=== PATIENT | male | born 1960 | race Caucasian/White ===

== ENCOUNTER 2020-11-08 09:50 | Outpatient (REF) | payer OTHER, SELFPAY ==
[2020-11-08 14:30] LABS: Anion Gap 7.4 mmol/L (3-11); BUN 21 mg/dL (7-18); CO2 26.6 mmol/L (21.0-32.0); CREATININE 1.21 mg/dL (0.70-1.30); Calcium 8.6 mg/dL (8.5-10.1); Calculated LDL 122 mg/dL (<100); Chloride 107 mmol/L (98-107); Cholesterol 217 mg/dL (<200); Glucose 98 mg/dL (74-106); HDL Cholesterol 44 mg/dL (40-60); Potassium 4.3 mmol/L (3.5-5.1); Sodium 141 mmol/L (136-145); Triglyceride 257 mg/dL (<150)
== END 2020-11-08 10:10 ==
LOC: NCHCN 09:50
PROVIDERS: PCP Physician Assistant; Visit Provider Physician Assistant
DX: R03.0 Elevated blood-pressure reading, without diagnosis of hypertension (principal)
CPT/HCPCS: 80048; 80061

== ENCOUNTER 2020-12-03 05:26 | Outpatient (CLI) | payer OTHER, SELFPAY ==
--- NOTE | 2020-12-20 12:35 | W.ZIOMONITOR ---
Date of service: 12/20/20 Time of Service: 12:35 14 Day Telephone Advice Nurse Referring Provider:: Monica Indications:: palps Note: This is a 14-day monitor ordered for occasional palpitations. ?The patient was in normal sinus rhythm for the majority of the recording with an average heart rate of 75 bpm. ?There was one episode of supraventricular tachycardia which lasted 6 beats. The patient was asymptomatic during this episode. ?There were rare PACs and rare PVCs. There were no episodes of ventricular tachycardia. ?There are no episodes of atrial fibrillation, no pauses greater than 3 seconds and no evidence of high degree heart block. ?Patient triggered events were associated with sinus rhythm and sinus tachycardia.
== END 2020-12-03 05:46 ==
PROVIDERS: PCP Physician Assistant; Visit Provider Physician Assistant
DX: R00.2 Palpitations (principal)
CPT/HCPCS: 93246

== ENCOUNTER 2021-01-11 09:16 | Outpatient (CLI) | payer OTHER, SELFPAY ==
--- NOTE | 2021-01-11 09:15 | RT.EKG_ITS ---
APPROVED REPORT Exam: Resting ECG Patient Location: O HR:74 bpm ECG Measurements Heart Rate 74 AXIS ID 127 P 13 QRSd 93 QRS 12 QT 380 T 17 QTc 422 Conclusion Sinus rhythm...normal P axis, V-rate 50- 99
== END 2021-01-11 09:17 | disposition home or self-care (01) ==
LOC: DI.CARD 09:17
PROVIDERS: PCP Physician Assistant; Visit Provider Internal Medicine Cardiovascular Disease
DX: R00.2 Palpitations (principal); R09.89 Other specified symptoms and signs involving the circulatory and respiratory systems; Z82.49 Family history of ischemic heart disease and other diseases of the circulatory system
CPT/HCPCS: 93010

== ENCOUNTER 2021-01-11 18:44 | Outpatient (REF) | payer OTHER, SELFPAY ==
[2021-01-11 11:15] LABS: Calculated LDL 127 mg/dL (<100); Cholesterol 215 mg/dL (<200); HDL Cholesterol 49 mg/dL (40-60); Triglyceride 197 mg/dL (<150)
== END 2021-01-11 18:45 | disposition home or self-care (01) ==
LOC: LBN 18:44
PROVIDERS: PCP Physician Assistant; Visit Provider Internal Medicine Cardiovascular Disease
DX: R00.2 Palpitations (principal); E78.89 Other lipoprotein metabolism disorders
CPT/HCPCS: 80061

== ENCOUNTER 2021-02-06 01:48 | Outpatient (CLI) | payer OTHER, SELFPAY ==
--- NOTE | 2021-02-06 13:56 | DI.US_ITS ---
APPROVED REPORT EXAM: Comprehensive 2D, Doppler, and color-flow Echocardiogram Patient Location: Out-Patient Rigging Up Worker: Valerie Mario RDCS (AE) Indications: Palpiations Other Information Study Quality: Good Conclusion Left Ventricle : The left ventricle is normal size. The left ventricular systolic function is normal. The left ventricular ejection fraction is within the normal range. There is normal left ventricular wall thickness. There is normal LV segmental wall motion. The left ventricular diastolic function is normal. LVEF is 61%. Right Ventricle : The right ventricle is normal size. The right ventricular systolic function is norm al. The RVSP is 23.9mmHg. Atria : The left atrium size is normal. The right atrium size is normal. Valves: There are no hemodynamically significant valvular lesions. Great Vessels : The aortic root is normal in size. The ascending aorta is normal in size. Aortic arch is normal in caliber. IVC is normal in size and collapses >50% with inspiration. Please see remainder of study for further details. Wall motion Left Ventricle The left ventricle is normal size. The left ventricular systolic function is normal. The left ventric ular ejection fraction is within the normal range. There is normal left ventricular wall thickness. T here is normal LV segmental wall motion. The left ventricular diastolic function is normal. There is no ventricular septal defect visualized. LVEF is 61%. Right Ventricle The right ventricle is normal size. The right ventricular systolic function is normal. The RVSP is 23 .9mmHg. Atria The left atrium size is normal. The right atrium size is normal. The interatrial septum is intact wit h no evidence for an atrial septal defect. Aortic Valve The aortic valve is normal in structure. Aortic valve is trileaflet. There is no aortic valvular sten osis. No aortic regurgitation is present. Mitral Valve The mitral valve is normal in structure. No evidence of mitral valve stenosis. Trace mitral regurgita tion. Tricuspid Valve The tricuspid valve is normal in structure. There is no tricuspid valve stenosis. Trace tricuspid reg urgitation. Pulmonic Valve The pulmonary valve is normal in structure. There is no pulmonic valvular stenosis. Trace pulmonic re gurgitation. Great Vessels The aortic root is normal in size. The ascending aorta is normal in size. Aortic arch is normal in ca liber. IVC is normal in size and collapses >50% with inspiration. Pericardium There is no pericardial effusion. 2D Dimensions IVSD d PLAX 0.88 cm M: 0.6-1.2 LV Vol A2C d MOD 84.8 mL LVPW d PLAX 0.90 cm M: 0.6 - 1.2 LV Vol A4C d MOD 105.6 mL LVID d PLAX 4.47 cm M: 4.2 - 5.8 LA vol/ BSA A2C s A-L 15.3 mL/m2 LVDs 3.00 cm M: 2.5 - 4.0 LA vol/ BSA A4C s A-L 12.8 mL/m2 Ao Root d 2.79 cm M: 3.1 - 3.7 LA Vol/ BSA Biplane s A-L 14.6 mL/m2 RA Area A4C 10.11 cm2 LA Area A4C s MOD 11.99 cm2 RA Vol/ BSA A4C s A-L 10.2 mL/m2 LA Area A2C s MOD 12.54 cm2 Ao Asc Diam d 3.33 cm M: 2.6 - 3.4 LV EF A4C MOD 61.3 % LV EF Teichholz 61.4 % LV EF A2C MOD 59.2 % LVEF (Johnson's) 61.38 % M: 52 - 72 LV EF Biplane MOD 61.4 % LV Volume 73.19 mL M: 62 - 150 SV 60.12 mL LV Volume Index 36.23 mL/m2 M: 34 - 74 SV Index 29.73 mL/m2 LV Vol Biplane MOD 97.9 mL FS 32.75 % M-Mode TAPSE 2.25 cm (M/F) >1.7 LV Diastology MV E' medial 0.104 (>0.07 m/s) E/A Ratio 1.0 LV E/e MED 7.20 (<14) MV E Vmax 0.75 (0.4-1.3 m/s) MV E' lateral 0.094 (>0.1 m/s) MV A Vmax 0.75 (0.4-1.3 m/s) LV E/e LAT 7.95 (<14) MV E/A Ratio 0.99 MV E/E' medial 7.23 MV E/E' lateral 7.98 Aortic Valve LVOT Area 2.90 cm2 AoV Area Vmax 1.95 cm2 LVOT Vmax 1.01 m/s AoV Area/ BSA (Vmax) 0.96 cm2/m2 LVOT Mean Renato. 0.61 m/s KALA Mean Renato. 1.77 cm2 LVOT Peak Grad 4.1 mmHg KALA Mean Renato. Index 0.87 cm2/m2 LVOT Mean Grad 1.8 mmHg LVOT VTI 0.193 m LVOT Diam s 1.90 cm AoV Vmax 1.51 m/s Velocity Ratio 0.66 AoV Mean Renato. 1.01 m/s AoV Peak Grad 9.1 mmHg LVOT SV 55.92 mL AoV Mean Grad 4.7 mmHg AoV VTI 0.287 m AoV Area VTI 1.95 cm2 AoV Area/ BSA (VTI) 0.96 cm/m2 Mitral Valve MV DT 167 (160-240 msec) MV PHT 48 msec MV Area PHT 4.54 cm2 Pulmonary Valve PV Vmax 1.17 (0.5-1.5 m/s) RVOT Peak Gr. 1.48 mmHg PV Peak Grad 5.5 mmHg RVOT Mean Gr. 0.80 mmHg PV Mean Grad 2.6 mmHg RVOT VTI 0.127 m PV VTI 0.221 m RVOT Vmax 0.61 m/s Tricuspid Valve TR Peak Grad 20.9 mmHg TR Vmax 2.29 m/s RA Pressure 3.00 mmHg RVSP (TR) 23.9 mmHg
== END 2021-02-06 02:08 ==
PROVIDERS: PCP Physician Assistant; Visit Provider Internal Medicine Cardiovascular Disease
DX: R00.2 Palpitations (principal)
CPT/HCPCS: 93306

== ENCOUNTER 2021-03-06 01:32 | Outpatient (CLI) | payer OTHER, SELFPAY ==
--- NOTE | 2021-03-06 08:59 | DI.RAD_ITS ---
EXAM: RF BARIUM SWALLOW CLINICAL HISTORY: GERD,K21.9 TECHNIQUE: 2D and realtime digital imaging was performed. This study was performed both standing and recumbent. Both single and double-contrast technique. CONTRAST MATERIAL: Barium sulfate COMPARISON: No exams were available for comparison FINDINGS: Swallowing mechanism appeared grossly intact. Appear to be mild penetration but no aspiration. No o bvious hypertense upper esophageal sphincter. Small anterior osteophytes in lower cervical spine sli ghtly indent the posterior aspect of the barium column. There is no evidence of Zenker's diverticulu m. No obvious fixed lesions evident in the esophagus. No hiatal hernia. No Schatzki ring. Incidentally noted on this study is a prominent the duodenal diverticulum typical location on the med ial wall near the insertion of the common bile duct. There are no ulcer craters evident. No strictu res in the duodenum. IMPRESSION: No obvious fixed lesions seen in the esophagus. No hiatal hernia evident. Mild reflux demonstrated. Given this patient's symptoms are recommend follow-up modified barium swallow study. RADIATION DOSE DELIVERED: michael Sullivan=37.0 mGy
[2021-03-06] MEDS: Barium Sulfate 60% W/V 355 ML BTL PO (09:55)
== END 2021-03-06 01:52 ==
PROVIDERS: PCP Physician Assistant; Visit Provider Physician Assistant
DX: K21.9 Gastro-esophageal reflux disease without esophagitis (principal)
CPT/HCPCS: 74221; J3490

== ENCOUNTER 2021-04-09 07:42 | Outpatient (REF) | payer OTHER, SELFPAY ==
[2021-04-09 16:07] LABS: ALT 51 U/L (16-63); AST 22 U/L (15-37); Albumin 3.8 g/dL (3.4-5.0); Alkaline Phosphatase 143 U/L (46-116); Anion Gap 13.2 mmol/L (3-11); BUN 16 mg/dL (7-18); Bilirubin, Total 0.7 mg/dL (0.2-1.0); CO2 22.8 mmol/L (21.0-32.0); CREATININE 1.1 mg/dL (0.70-1.30); Calcium 8.9 mg/dL (8.5-10.1); Calculated LDL 60 mg/dL (<100); Chloride 109 mmol/L (98-107); Cholesterol 128 mg/dL (<200); Glucose 100 mg/dL (74-106); HDL Cholesterol 41 mg/dL (40-60); Sodium 145 mmol/L (136-145); Total Protein 6.5 g/dL (6.4-8.2); Triglyceride 136 mg/dL (<150)
[2021-04-09 22:26] LABS: PSA, Screening 1.1 ng/mL (0.0-4.5)
== END 2021-04-09 07:43 | disposition home or self-care (01) ==
LOC: NCHCN 07:42
PROVIDERS: PCP Physician Assistant; Visit Provider Physician Assistant
DX: Z12.5 Encounter for screening for malignant neoplasm of prostate (principal); E78.5 Hyperlipidemia, unspecified
CPT/HCPCS: 80053; 80061; 84153

== ENCOUNTER 2021-12-31 10:34 | Outpatient (REF) | payer OTHER, SELFPAY ==
[2021-12-31 15:25] LABS: HCT 41.2 % (40.0-50.0); HGB 13.7 g/dL (13.5-17.5); MCH 30.2 pg (27.0-33.0); MCHC 33.3 % (32.0-36.0); MCV 90.7 fL (80-95); MPV 9.8 fL (8.0-11.0); Platelet Count 280 10^3/uL (130-400); RBC 4.54 10^6/uL (4.36-5.78); RDW-SD 39.7 fL; WBC 6.95 10^3/uL (4.4-10.8)
[2021-12-31 15:49] LABS: Anion Gap 9.4 mmol/L (3-11); BUN 16 mg/dL (7-18); CO2 25.6 mmol/L (21.0-32.0); CREATININE 1.1 mg/dL (0.70-1.30); Calcium 8.8 mg/dL (8.5-10.1); Chloride 109 mmol/L (98-107); Glucose 111 mg/dL (74-106); Potassium 3.8 mmol/L (3.5-5.1); Sodium 144 mmol/L (136-145); TSH 1.04 uIU/mL (0.36-3.74)
[2021-12-31 22:30] LABS: T3, Total 136 ng/dL (97-169)
== END 2021-12-31 10:35 | disposition home or self-care (01) ==
LOC: NCHCN 10:34
PROVIDERS: PCP Physician Assistant; Visit Provider Physician Assistant
DX: R42 Dizziness and giddiness (principal); R79.89 Other specified abnormal findings of blood chemistry
CPT/HCPCS: 80048; 85027; 84443; 84480; 85025

== ENCOUNTER 2022-04-22 15:36 | Outpatient (REF) | payer OTHER, SELFPAY | END 2022-04-22 15:37 | disposition home or self-care (01) | LOC: NCHCN 15:36 | PROVIDERS: PCP Physician Assistant; Visit Provider Physician Assistant | DX: Z12.5 Encounter for screening for malignant neoplasm of prostate (principal) | CPT/HCPCS: 84153 ==

== ENCOUNTER 2022-06-16 10:00 | Outpatient (CLI) | payer OTHER, SELFPAY ==
--- NOTE | 2022-06-16 10:00 | RT.EKG_ITS ---
APPROVED REPORT Exam: Resting ECG Reason for Exam: afib, cad Patient Location: O HR:73 bpm ECG Measurements Heart Rate 73 AXIS NH 106 P 12 QRSd 93 QRS 14 QT 369 T 17 QTc 407 Conclusion Sinus rhythm...normal P axis, V-rate 50- 99 Short NH interval...NH <110mS Normal Electrocardiogram
== END 2022-06-16 10:01 | disposition home or self-care (01) ==
LOC: DI.CARD 10:00
PROVIDERS: PCP Physician Assistant; Visit Provider Internal Medicine Cardiovascular Disease
DX: I25.10 Atherosclerotic heart disease of native coronary artery without angina pectoris (principal); R00.2 Palpitations; I48.91 Unspecified atrial fibrillation
CPT/HCPCS: 93010

== ENCOUNTER 2022-07-23 20:54 | Outpatient (REF) | payer OTHER, SELFPAY ==
[2022-07-23 16:16] LABS: ALT 27 U/L (16-63); AST 20 U/L (15-37); Albumin 3.7 g/dL (3.4-5.0); Alkaline Phosphatase 108 U/L (46-116); BUN 17 mg/dL (7-18); Bilirubin, Total 0.7 mg/dL (0.2-1.0); CREATININE 1.2 mg/dL (0.70-1.30); Calcium 8.5 mg/dL (8.5-10.1); Chloride 105 mmol/L (98-107); Estimated GFR 67.95 (mL/min/1.73m2); Glucose 102 mg/dL (74-106); Lipase 122 U/L (73-393); Potassium 3.8 mmol/L (3.5-5.1); Sodium 141 mmol/L (136-145); Total Protein 7.1 g/dL (6.4-8.2)
[2022-07-23 16:19] LABS: HCT 39.7 % (40.0-50.0); HGB 13.7 g/dL (13.5-17.5); MCH 30.2 pg (27.0-33.0); MCHC 34.5 % (32.0-36.0); MCV 88 fL (80-95); MPV 9.8 fL (8.0-11.0); Platelet Count 289 10^3/uL (130-400); RBC 4.53 10^6/uL (4.36-5.78); RDW 11.7 % (11.8-14.1); RDW-SD 37.7 fL; WBC 5.33 10^3/uL (4.4-10.8)
== END 2022-07-23 20:55 | disposition home or self-care (01) ==
LOC: NCHCN 20:54
PROVIDERS: PCP Physician Assistant; Visit Provider Physician Assistant
DX: R10.9 Unspecified abdominal pain (principal)
CPT/HCPCS: 80053; 83690; 85027

== ENCOUNTER 2022-12-26 15:52 | Outpatient (REF) | payer OTHER, SELFPAY ==
[2022-12-26 16:44] LABS: ALT 31 U/L (16-63); AST 24 U/L (15-37); Albumin 3.9 g/dL (3.4-5.0); Alkaline Phosphatase 134 U/L (46-116); Anion Gap 7.4 mmol/L (3-11); BUN 23 mg/dL (7-18); Bilirubin, Total 0.6 mg/dL (0.2-1.0); CO2 26.6 mmol/L (21.0-32.0); CREATININE 1.1 mg/dL (0.70-1.30); Calcium 9.1 mg/dL (8.5-10.1); Calculated LDL 75 mg/dL (<100); Chloride 108 mmol/L (98-107); Cholesterol 149 mg/dL (<200); Estimated GFR 75.43 (mL/min/1.73m2); Glucose 105 mg/dL (74-106); HDL Cholesterol 53 mg/dL (40-60); Potassium 4.1 mmol/L (3.5-5.1); Sodium 142 mmol/L (136-145); Total Protein 6.8 g/dL (6.4-8.2); Triglyceride 105 mg/dL (<150)
[2022-12-29 10:36] LABS: PSA, Screening 1.4 ng/mL (<=4.5)
== END 2022-12-26 15:53 | disposition home or self-care (01) ==
LOC: NCHCN 15:52
PROVIDERS: PCP Physician Assistant; Visit Provider Physician Assistant
DX: I10 Essential (primary) hypertension (principal); E78.5 Hyperlipidemia, unspecified; N40.0 Benign prostatic hyperplasia without lower urinary tract symptoms; Z12.5 Encounter for screening for malignant neoplasm of prostate
CPT/HCPCS: 80053; 80061; 84153

== ENCOUNTER 2023-05-04 03:18 | Outpatient (CLI) | payer OTHER, SELFPAY ==
[2023-05-05 19:11] LABS: PSA, Screening 1.2 ng/mL (<=4.5)
== END 2023-05-04 03:19 | disposition home or self-care (01) ==
PROVIDERS: PCP Physician Assistant; Visit Provider Urology
DX: Z12.5 Encounter for screening for malignant neoplasm of prostate (principal)
CPT/HCPCS: 36415; 84153

== ENCOUNTER 2023-12-28 09:55 | Outpatient (REF) | payer OTHER, SELFPAY ==
[2023-12-28 16:30] LABS: ALT 36 U/L (16-63); AST 22 U/L (15-37); Alkaline Phosphatase 133 U/L (46-116); Anion Gap 10.4 mmol/L (3-11); BUN 18 mg/dL (7-18); Bilirubin, Total 0.7 mg/dL (0.2-1.0); CO2 28.6 mmol/L (21.0-32.0); CREATININE 1.2 mg/dL (0.70-1.30); Calcium 9.3 mg/dL (8.5-10.1); Calculated LDL 77 mg/dL (<100); Chloride 106 mmol/L (98-107); Cholesterol 155 mg/dL (<200); Estimated GFR 67.53 (mL/min/1.73m2); Glucose 90 mg/dL (74-106); HDL Cholesterol 54 mg/dL (40-60); Potassium 4.5 mmol/L (3.5-5.1); Sodium 145 mmol/L (136-145); Total Protein 6.7 g/dL (6.4-8.2); Triglyceride 121 mg/dL (<150)
[2023-12-28 22:46] LABS: PSA, Screening 1.5 ng/mL (<=4.5)
== END 2023-12-28 09:56 | disposition home or self-care (01) ==
LOC: NCHCN 09:55
PROVIDERS: PCP Physician Assistant; Visit Provider Physician Assistant
DX: E78.5 Hyperlipidemia, unspecified (principal); Z12.5 Encounter for screening for malignant neoplasm of prostate
CPT/HCPCS: 80053; 80061; 84153

== ENCOUNTER 2024-05-13 02:52 | Outpatient (CLI) | payer OTHER, SELFPAY ==
[2024-05-13 18:42] LABS: PSA, Screening 1.7 ng/mL (<=4.5)
== END 2024-05-13 02:53 | disposition home or self-care (01) ==
LOC: LOS 02:52
PROVIDERS: PCP Physician Assistant; Visit Provider Urology
DX: Z12.5 Encounter for screening for malignant neoplasm of prostate (principal)
CPT/HCPCS: 36415; 84153

== ENCOUNTER 2024-12-28 13:24 | Outpatient (REF) | payer OTHER, SELFPAY ==
[2024-12-28 17:32] LABS: ALT 29 U/L (16-63); AST 22 U/L (15-37); Albumin 4.1 g/dL (3.4-5.0); Alkaline Phosphatase 132 U/L (46-116); BUN 16 mg/dL (7-18); Bilirubin, Total 0.57 mg/dL (0.2-1.0); CREATININE 1.3 mg/dL (0.70-1.30); Calcium 8.9 mg/dL (8.5-10.1); Calculated LDL 136 mg/dL (<100); Chloride 108 mmol/L (98-107); Cholesterol 236 mg/dL (<200); Estimated GFR 60.96 (mL/min/1.73m2); Glucose 110 mg/dL (74-106); HDL Cholesterol 50 mg/dL (40-60); Potassium 4.1 mmol/L (3.5-5.1); Sodium 144 mmol/L (136-145); Total Protein 7.1 g/dL (6.4-8.2); Triglyceride 253 mg/dL (<150)
[2024-12-28 22:06] LABS: PSA, Screening 1.4 ng/mL (<=4.5)
== END 2024-12-28 13:25 | disposition home or self-care (01) ==
LOC: NCHCN 13:24
PROVIDERS: PCP Physician Assistant; Visit Provider Physician Assistant
DX: Z12.5 Encounter for screening for malignant neoplasm of prostate (principal); E78.5 Hyperlipidemia, unspecified
CPT/HCPCS: 80053; 80061; 84153

== ENCOUNTER 2025-06-01 02:54 | Outpatient (CLI) | payer OTHER, SELFPAY ==
[2025-06-01 22:47] LABS: PSA, Screening 2.5 ng/mL (<=4.5)
== END 2025-06-01 02:55 | disposition home or self-care (01) ==
LOC: LBO 02:54
PROVIDERS: PCP Physician Assistant; Visit Provider Urology
DX: Z12.5 Encounter for screening for malignant neoplasm of prostate (principal)
CPT/HCPCS: 36415; 84153

== ENCOUNTER 2025-06-19 08:09 | Outpatient (CLI) | payer OTHER, SELFPAY ==
--- NOTE | 2025-06-19 08:00 | RT.EKG_ITS ---
APPROVED REPORT Exam: Resting ECG Reason for Exam: palpitations Patient Location: O HR:84 bpm ECG Measurements Heart Rate 84 AXIS AL 127 P 5 QRSd 86 QRS 7 QT 344 T 9 QTc 407 Conclusion Sinus rhythm...normal P axis, V-rate 50- 99 Normal Electrocardiogram
== END 2025-06-19 08:10 | disposition home or self-care (01) ==
LOC: DI.CARD 08:09
PROVIDERS: PCP Physician Assistant; Visit Provider Registered Nurse
DX: I25.10 Atherosclerotic heart disease of native coronary artery without angina pectoris (principal); R00.2 Palpitations
CPT/HCPCS: 93010